=== PATIENT | female | born 1930 | race Hispanic/Latino ===

== ENCOUNTER 2017-04-02 17:23 | Inpatient (IN) | payer MEDICARE ==
[2017-04-02] MEDS ORDERED: LASIX PO ONE (19:47)
[2017-04-02 20:15] LABS: Basophils % (Auto) 0.6 % (0.0-1.8); Eosinophils % (Auto) 1.2 % (0.0-4.3); Hematocrit 37.6 % (30.3-42.9); Hemoglobin 12.3 gm/dl (10.1-14.3); Mean Corpuscular HGB Conc 33 % (30-34); Mean Corpuscular Hemoglobin 28 pg (28-32); Mean Corpuscular Volume 84 fl (79-97); Platelet Count 321 K/mm3 (140-440); Red Blood Count 4.47 M/mm3 (3.65-5.03); Red Cell Distribution Width 15.4 % (13.2-15.2)
[2017-04-02 20:24] LABS: INR 1.18 (0.87-1.13)
[2017-04-02 20:25] LABS: Partial Thromboplastin Time 33.9 Sec. (24.2-36.6)
[2017-04-02 20:30] LABS: Alanine Aminotransferase 24 units/L (7-56); Albumin 2.1 g/dL (3.9-5); Albumin/Globulin Ratio 0.5 %; Alkaline Phosphatase 162 units/L (35-129); Anion Gap 13 mmol/L; BUN/Creatinine Ratio 48.57; Blood Urea Nitrogen 34 mg/dL (7-17); Calcium 8.9 mg/dL (8.4-10.2); Carbon Dioxide 35 mmol/L (22-30); Chloride 97.5 mmol/L (98-107); Glucose 109 mg/dL (65-100); Potassium 4.4 mmol/L (3.6-5.0); Sodium 141 mmol/L (137-145); Total Protein 6.1 g/dL (6.3-8.2)
[2017-04-02] MEDS ORDERED: LASIX IV ONE (21:02)
--- NOTE | 2017-04-02 23:39 | Emergency Department Report ---
HPI - General Chief Complaint: Weakness Time Seen by Provider: 04/02/17 19:20 - HPI HPI: Patient is a 86-year-old white female sent from care home for severe weakness , shortness of breath, leg swelling, chest pain. Symptom has been going on for the past 5 days but worse today. Patient has been compliant with medication. Patient is denying any fever, chills, night sweats. Patient denies any sick contact. No recent travel. Patient has a history of CHF, high blood pressure, among other medical issues. ED Past Medical Hx - Past Medical History Previous Medical History?: Yes Hx Hypertension: Yes Hx Congestive Heart Failure: Yes Hx of Cancer: Yes - Surgical History Hx Coronary Stent: Yes - Family History Family history: hypertension - Social History Smoking Status: Unknown if ever smoked Substance Use Type: None ED Review of Systems ROS: Stated complaint: EDEMA AND LOW BP Other details as noted in HPI Comment: All other systems reviewed and negative Cardiovascular: chest pain, dyspnea on exertion, orthopnea, edema Physical Exam - Physical Exam Vital Signs: Vital Signs 04/02/17 04/02/17 18:49 21:32 Temperature 98.2 F 97.7 F Pulse Rate 101 H 94 H Respiratory 18 Rate Blood Pressure 112/70 Blood Pressure 130/70 [Right] O2 Sat by Pulse 92 Oximetry Physical Exam: General Adult Exam GENERAL APPEARANCE: Well developed, well nourished, alert and cooperative. HEAD: normocephalic. EYES: PERRL, EOMI. Fundi normal, vision is grossly intact. EARS: External auditory canals and tympanic membranes clear, hearing grossly intact. NOSE: No nasal discharge. THROAT: Oral cavity and pharynx normal. No inflammation, swelling, exudate, or lesions. NECK: Neck supple, non-tender without lymphadenopathy, masses or thyromegaly. CARDIAC: Normal S1 and S2. . Rhythm is regular. LUNGS: diminished breath sounds. ABDOMEN: Positive bowel sounds. Soft, nondistended, nontender. No guarding or rebound. No masses. EXTREMITIES: Significant lower extremity edema NEUROLOGICAL: CN II-XII intact. Strength and sensation symmetric and intact throughout. Reflexes 2+ throughout. Cerebellar testing normal. SKIN: Skin normal color, texture and turgor with no lesions or eruptions. PSYCHIATRIC: The mental examination revealed the patient was oriented to person , place, and time. The patient was able to demonstrate good judgement and reason , without hallucinations, abnormal affect or abnormal behaviors during the examination. Patient is not suicidal. ED Course Vital Signs 04/02/17 04/02/17 18:49 21:32 Temperature 98.2 F 97.7 F Pulse Rate 101 H 94 H Respiratory 18 Rate Blood Pressure 112/70 Blood Pressure 130/70 [Right] O2 Sat by Pulse 92 Oximetry ED Medical Decision Making - Lab Data Result diagrams: 04/02/17 19:48 04/02/17 19:48 Critical care attestation.: If time is entered above; I have spent that time in minutes in the direct care of this critically ill patient, excluding procedure time. ED Disposition Clinical Impression: CHF exacerbation Disposition: OP ADMIT IP TO THIS HOSP Is pt being admited?: Yes Does the pt Need Aspirin: Yes Condition: Stable Referrals: PRIMARY CARE, [Primary Care Provider] - 3-5 Days
[2017-04-03] MEDS ORDERED: NITROSTAT SL PRN (00:54)
[2017-04-03] MEDS ORDERED: MORPHINE IV PRN (00:54)
--- NOTE | 2017-04-03 08:08 | History and Physical Report ---
CHIEF COMPLAINT: Shortness of breath. Other complaints include swelling in the leg. HISTORY OF PRESENT ILLNESS: The patient is an 86-year-old female brought from [facility] [facility] because of shortness of breath with swelling in the legs. The patient denied chest pain. Denied history of fever. Denies history of cough and said that his shortness of breath is getting worse. PAST MEDICAL HISTORY: Pertinent for hypertension, congestive heart failure, history of unknown cancer. The patient also has past history of coronary artery disease. PAST SURGICAL HISTORY: Pertinent for stent placement. FAMILY HISTORY: Pertinent for hypertension. SOCIAL HISTORY: The patient stays at the [place] [facility], does not smoke, does not drink alcohol and does not use illicit drugs. MEDICATIONS: The patient's home medications are not known at this time. ALLERGIES: THE PATIENT IS ALLERGIC TO PENICILLIN. REVIEW OF SYSTEMS: CONSTITUTIONAL: There is no fever, no chills, no diaphoresis. HEENT: There is no headache or sore throat. CARDIOVASCULAR: There is no chest pain, no orthopnea. RESPIRATORY: Shortness of breath present. No cough. GASTROINTESTINAL: Show no nausea, no vomiting, no abdominal pain, diarrhea or constipation. NEUROLOGICAL: There is no numbness, no dizziness, no altered mental status. MUSCULOSKELETAL: Swelling in both lower extremities notably in the ankles reported. DERMATOLOGICAL: There is no skin rash or itching. GENITOURINARY: There is no dysuria, hematuria, or flank pain. Rest of system review is normal. PHYSICAL EXAMINATION: GENERAL: At the time of exam, the patient was found to be alert and oriented x 3 and in mild distress due to shortness of breath. VITAL SIGNS: Shows temperature of 98.7 degrees Fahrenheit, pulse of 105, respirations of 22, blood pressure of 130/70, O2 sat of 96% on oxygen. HEENT: Showed pupils to be equal, round, reactive to light and accommodation. Extraocular muscles are intact. NECK: Supple with no JVD or carotid bruit. CARDIOVASCULAR: Showed normal first and second heart sounds with no gallops or murmur. RESPIRATORY: Showed bibasilar rales. GASTROINTESTINAL: Show abdomen to be full, soft, nontender with no organomegaly or rigidity. NEUROLOGIC: Shows no focal deficits. MUSCULOSKELETAL: Shows swelling of both the ankles and legs with pitting edema. DERMATOLOGICAL: Show no skin rash. GENITOURINARY: Showing no costovertebral angle tenderness. PERTINENT LABORATORY AND IMAGING STUDIES: The patient had CBC done with normal white count, normal hemoglobin and normal hematocrit. CBC differential showed elevated neutrophil count of 72.5% with no significant band. Coagulation study was unremarkable. Chemistry shows elevated CO2 with a value of 35 and elevated BUN with a value of 34 with normal creatinine and unremarkable EGFR. Troponin level was high with a value of 0.052. Brain natriuretic peptide value was high with a value of 3228, albumin level was low with a value of 2.1. The patient had chest x-ray done that shows mild pulmonary congestion. DIAGNOSIS: Congestive heart failure with exacerbation. PLAN: The patient will be admitted to medical floor using CHF pathway and will have cardiac enzymes involving troponin, total CK, and CK-MB checked q. 6 hours x 2 more levels. The patient will be on IV Lasix 40 mg daily and will have complete echocardiogram done this morning. DVT prophylaxis will be through sequential compressive device. The patient will be on aspirin 325 mg by mouth daily and will be on Lasix 40 mg IV daily and IV morphine 2 mg every 3 hours as needed for pain. The patient will be on Nitrostat 0.4 mg every 5 minutes as needed for chest pain and will be on oxygen by nasal cannula 2 liters per minute. JOB# [id number] OCN/NTS
--- NOTE | 2017-04-03 09:13 | XRay Report ---
AP chest x-ray. History: Shortness of breath. Findings: The heart is mildly enlarged with prominent central pulmonary vessels. Hazy opacity in the left lower lung zone with blunting of the costophrenic angle indicates a small effusion and/or left lower lobe atelectasis. A small right effusion is suspected as well. Impression: Mild CHF.
--- NOTE | 2017-04-03 09:29 | Admit Criteria Form ---
Admission Criteria Documentation: HEART FAILURE: COMMON COMPLICATIONS Clinical Indications for Inpatient Care ([facility]/check or initial the applicable condition/criteria): Ongoing inpatient care may be indicated for heart failure with 1 or more of the following (1)(2)(3)(4)(5)(6)(7)(8): [ ]I. New-onset heart failure [ ]II. Acute cardiac ischemia causing or associated with failure [ ]III. Ongoing need for care for primary condition requiring frequent therapy adjustments because of changes in cardiac function (eg, drug dosage changes for drugs that are renally metabolized) [X]IV. Complications of heart failure, including 1 or more of the following: [ ]a) Hemodynamic instability [ ]b) Pericardial effusion [ ]c) Symptomatic pleural effusion(16) [ ]d) Hypoxemia [ ]e) Tachypnea [X ]f) Dyspnea [ ]g) Syncope [ ]h) Altered mental status [ ]i) Acute renal insufficiency that is severe (reduction of more than 50% in estimated glomerular filtration rate from baseline) or progressive (reduction of more than 25% in estimated glomerular filtration rate from baseline, with creatinine continuing to rise) [ ]j) Debilitating anasarca (eg tissue breakdown with infection, inability to void due to edema)(E) (17) [ ]k) Clinically significant metabolic abnormalities due to heart failure (e.g., new-onset metabolic acidosis) Extended stay may be needed until ALL of the following are present(1)(3)(18)(41) (55): [ ]a) Hemodynamic stability [ ]b) Stable and effective diuretic regimen established (or patient on stable dialysis regimen if in chronic renal failure) [ ]c) Volume status acceptable on oral medication [ ]d) Breathing comfortably at rest [ ]e) Saturation of arterial oxygen greater than 90% or at acceptable baseline [ ]f) Pulmonary edema absent or improved [ ]g) Peripheral or sacral edema absent or improved [ ]h) Renal function stable and manageable at a lower level of care [ ]i) Complications (e.g., pleural effusion) resolved or manageable at a lower level of care [ ]j) Patient or caregiver has received written discharge instructions or educational material addressing activity level, diet, discharge medications, follow-up appointment, weight monitoring, and what to do if symptoms worsen. (56)(57)(58) The original [facility] [employer] content created by Deonte Vidales has been revised. The portions of the content which have been revised are identified through the use of italic text or in bold, and Deonte Vidales has neither reviewed nor approved the modified material.All other unmodified content is copyright [facility] [employer]. Please see references footnoted in the original [facility] [employer] edition 2017 Admission Criteria Met: Yes
[2017-04-03] MEDS ORDERED: ASPIRIN PO SCH (10:00)
[2017-04-03] MEDS: HEPARIN SUB-Q SCH ×2 (10:26→21:16)
[2017-04-03] MEDS: LASIX IV SCH (10:26)
[2017-04-03] MEDS: ASPIRIN PO SCH (10:27)
--- NOTE | 2017-04-03 16:50 | Progress Note ---
Assessment and Plan Assessment and plan: Acute diastolic CHF - Patient is being managed according to CHF protocol -Echo showed diastolic dysfunction with preserved ejection fraction Malnutrition Nutrition consult DVT prophylaxis Heparin Disposition Possible discharge tomorrow History Interval history: Patient was seen and evaluated this morning, She doesn't have any complaints, and was referred from [facility]. Hospitalist Physical - Physical exam Narrative exam: Not in cardiopulmonary distress. The patient appeared well nourished and normally developed. Vital signs as documented. Head exam is unremarkable. No scleral icterus . Neck is without jugular venous distension, thyromegaly, or carotid bruits. Lungs are clear to auscultation. Cardiac exam reveals regular rate and Rhythm. First and second heart sounds normal. No murmurs, rubs or gallops. Abdominal exam reveals normal bowel sounds, no masses, no organomegaly and no aortic enlargement. Extremities bilateral lower extremity swelling, nonpitting edema. CHANGE MANAGEMENT ANALYST: Alert and oriented 3. No focal weakness. - Constitutional Vitals: Temp Pulse Resp BP Pulse Ox 98.4 F 64 18 89/53 93 04/03/17 08:51 04/03/17 08:51 04/03/17 08:51 04/03/17 08:51 04/03/17 12:47 Results - Labs CBC & Chem 7: 04/02/17 19:48 04/02/17 19:48 Labs: Laboratory Last Values WBC 11.0 K/mm3 (4.5-11.0) 04/02/17 19:48 RBC 4.47 M/mm3 (3.65-5.03) 04/02/17 19:48 Hgb 12.3 gm/dl (10.1-14.3) 04/02/17 19:48 Hct 37.6 % (30.3-42.9) 04/02/17 19:48 MCV 84 fl (79-97) 04/02/17 19:48 MCH 28 pg (28-32) 04/02/17 19:48 MCHC 33 % (30-34) 04/02/17 19:48 RDW 15.4 % (13.2-15.2) H 04/02/17 19:48 Plt Count 321 K/mm3 (140-440) 04/02/17 19:48 Lymph % (Auto) 15.6 % (13.4-35.0) 04/02/17 19:48 [place] % (Auto) 10.1 % (0.0-7.3) H 04/02/17 19:48 Eos % (Auto) 1.2 % (0.0-4.3) 04/02/17 19:48 Baso % (Auto) 0.6 % (0.0-1.8) 04/02/17 19:48 Lymph # 1.7 K/mm3 (1.2-5.4) 04/02/17 19:48 [place] # 1.1 K/mm3 (0.0-0.8) H 04/02/17 19:48 Eos # 0.1 K/mm3 (0.0-0.4) 04/02/17 19:48 Baso # 0.1 K/mm3 (0.0-0.1) 04/02/17 19:48 Seg Neutrophils % 72.5 % (40.0-70.0) H 04/02/17 19:48 Seg Neutrophils # 8.0 K/mm3 (1.8-7.7) H 04/02/17 19:48 PT 14.9 Sec. (12.2-14.9) 04/02/17 19:48 INR 1.18 (0.87-1.13) H 04/02/17 19:48 APTT 33.9 Sec. (24.2-36.6) 04/02/17 19:48 Sodium 141 mmol/L (137-145) 04/02/17 19:48 Potassium 4.4 mmol/L (3.6-5.0) 04/02/17 19:48 Chloride 97.5 mmol/L (98-107) L 04/02/17 19:48 Carbon Dioxide 35 mmol/L (22-30) H 04/02/17 19:48 Anion Gap 13 mmol/L 04/02/17 19:48 BUN 34 mg/dL (7-17) H 04/02/17 19:48 Creatinine 0.7 mg/dL (0.7-1.2) 04/02/17 19:48 Estimated GFR > 60 ml/min 04/02/17 19:48 BUN/Creatinine Ratio 48.57 % 04/02/17 19:48 Glucose 109 mg/dL (65-100) H 04/02/17 19:48 Calcium 8.9 mg/dL (8.4-10.2) 04/02/17 19:48 Total Bilirubin 0.80 mg/dL (0.1-1.2) 04/02/17 19:48 AST 29 units/L (5-40) 04/02/17 19:48 ALT 24 units/L (7-56) 04/02/17 19:48 Alkaline Phosphatase 162 units/L (35-129) H 04/02/17 19:48 Troponin T 0.052 ng/mL (0.00-0.029) H 04/02/17 19:48 NT-Pro-B Natriuret Pep 3228 pg/mL (0-900) H 04/02/17 21:06 Total Protein 6.1 g/dL (6.3-8.2) L 04/02/17 19:48 Albumin 2.1 g/dL (3.9-5) L 04/02/17 19:48 Albumin/Globulin Ratio 0.5 % 04/02/17 19:48 Triglycerides 49 mg/dL (2-149) 04/02/17 19:48 Cholesterol 78 mg/dL (50-199) 04/02/17 19:48 LDL Cholesterol Direct 24 mg/dL (50-130) L 04/02/17 19:48 HDL Cholesterol 45 mg/dL (40-59) 04/02/17 19:48 Cholesterol/HDL Ratio 1.73 % 04/02/17 19:48 - Imaging and Cardiology Imaging and Cardiology: Echo was done and significant for diastolic dysfunction
[2017-04-04 06:07] LABS: Basophils % (Auto) 0.9 % (0.0-1.8); Eosinophils % (Auto) 3.1 % (0.0-4.3); Hemoglobin 11.9 gm/dl (10.1-14.3); Mean Corpuscular HGB Conc 32 % (30-34); Mean Corpuscular Hemoglobin 27 pg (28-32); Mean Corpuscular Volume 84 fl (79-97); Platelet Count 293 K/mm3 (140-440); Red Blood Count 4.42 M/mm3 (3.65-5.03); White Blood Count 8.3 K/mm3 (4.5-11.0)
[2017-04-04 06:20] LABS: Anion Gap 13 mmol/L; Blood Urea Nitrogen 32 mg/dL (7-17); Calcium 8.8 mg/dL (8.4-10.2); Carbon Dioxide 35 mmol/L (22-30); Chloride 94.3 mmol/L (98-107); Glucose 84 mg/dL (65-100); Potassium 3.9 mmol/L (3.6-5.0); Sodium 138 mmol/L (137-145)
[2017-04-04] MEDS: ASPIRIN PO SCH (09:21)
[2017-04-04] MEDS: LASIX IV SCH (09:21)
[2017-04-04] MEDS ORDERED: ROXICODONE PO PRN (10:19)
[2017-04-04] MEDS: HEPARIN SUB-Q SCH ×2 (11:06→21:07)
--- NOTE | 2017-04-04 13:02 | Consultation ---
<BINTA GARCIA - Last Filed: 04/04/17 13:22> History of Present Illness Consult date: 04/04/17 Consult reason: congestive heart failure, elevated troponin History of present illness: This is an 86yr old woman who was sent from the [facility] with shortness of breath and lower extremity edema. Patient is a poor historian. Patient denies chest pain. Her EKG shows atrial fibrillation with a well controlled ventricular rate. Home medications unavailable at this time. Chest x-ray reports mild CHF. Cardiac consultation was requested. Medications and Allergies Allergies Allergy/AdvReac Type Severity Reaction Status Date / Time Penicillins Allergy Unknown Rash Verified 04/02/17 20:59 Home Medications Medication Instructions Recorded Confirmed Last Taken Type No Known Home Medications [No 04/04/17 04/04/17 Unknown History Reported Home Medications] Active Meds: Active Medications Aspirin (Aspirin) 325 mg PO QDAY [facility] Last Admin: 04/04/17 09:21 Dose: 325 mg Furosemide (Lasix) 40 mg IV QDAY [facility] Last Admin: 04/04/17 09:21 Dose: 40 mg Heparin Sodium (Porcine) (Heparin) 5,000 unit SUB-Q Q12HR [facility] Last Admin: 04/04/17 11:06 Dose: 5,000 unit Morphine Sulfate (Morphine) 2 mg IV Q3H PRN PRN Reason: Chest Pain Nitroglycerin (Nitrostat) 0.4 mg SL .Q5MIN PRN PRN Reason: Chest Pain Oxycodone HCl (Roxicodone) 10 mg PO Q6H PRN PRN Reason: Pain, Moderate (4-6) Last Admin: 04/04/17 11:05 Dose: 10 mg Physical Examination Vital Signs Temp Pulse BP 98.2 F 101 H 112/70 04/02/17 18:49 04/02/17 18:49 04/02/17 18:49 General appearance: no acute distress HEENT: Positive: PERRL Cardiac: Positive: irregularly irregular Lungs: Positive: Decreased Breath Sounds Results 04/04/17 04:58 04/04/17 04:58 CBC 04/04/17 Range/Units 04:58 WBC 8.3 (4.5-11.0) K/mm3 RBC 4.42 (3.65-5.03) M/mm3 Hgb 11.9 (10.1-14.3) gm/dl Hct 37.0 (30.3-42.9) % Plt Count 293 (140-440) K/mm3 Lymph # 1.9 (1.2-5.4) K/mm3 [place] # 0.9 H (0.0-0.8) K/mm3 Eos # 0.3 (0.0-0.4) K/mm3 Baso # 0.1 (0.0-0.1) K/mm3 Comprehensive Metabolic Panel 04/04/17 Range/Units 04:58 Sodium 138 (137-145) mmol/L Potassium 3.9 (3.6-5.0) mmol/L Chloride 94.3 L (98-107) mmol/L Carbon Dioxide 35 H (22-30) mmol/L BUN 32 H (7-17) mg/dL Creatinine 0.8 (0.7-1.2) mg/dL Glucose 84 (65-100) mg/dL Calcium 8.8 (8.4-10.2) mg/dL Assessment and Plan CHF, diastolic EF 50-55% on echocardiogram Afib, uncertain duration rate controlled Nonspecific elevated troponin Recommendations: Obtain prior cardiac records and home medications. Agree with IV diuresis. <CHALINO GORMAN Last Filed: 04/04/17 23:26> History of Present Illness Consult reason: aortic stenosis Medications and Allergies Active Meds: Active Medications Aspirin (Aspirin) 325 mg PO QDAY [facility] Last Admin: 04/04/17 09:21 Dose: 325 mg Furosemide (Lasix) 40 mg IV QDAY [facility] Last Admin: 04/04/17 09:21 Dose: 40 mg Heparin Sodium (Porcine) (Heparin) 5,000 unit SUB-Q Q12HR [facility] Last Admin: 04/04/17 21:07 Dose: 5,000 unit Morphine Sulfate (Morphine) 2 mg IV Q3H PRN PRN Reason: Chest Pain Nitroglycerin (Nitrostat) 0.4 mg SL .Q5MIN PRN PRN Reason: Chest Pain Oxycodone HCl (Roxicodone) 10 mg PO Q6H PRN PRN Reason: Pain, Moderate (4-6) Last Admin: 04/04/17 11:05 Dose: 10 mg Physical Examination Vital Signs Temp Pulse BP 98.2 F 101 H 112/70 04/02/17 18:49 04/02/17 18:49 04/02/17 18:49 Results 04/04/17 04:58 04/04/17 04:58 CBC 04/04/17 Range/Units 04:58 WBC 8.3 (4.5-11.0) K/mm3 RBC 4.42 (3.65-5.03) M/mm3 Hgb 11.9 (10.1-14.3) gm/dl Hct 37.0 (30.3-42.9) % Plt Count 293 (140-440) K/mm3 Lymph # 1.9 (1.2-5.4) K/mm3 [place] # 0.9 H (0.0-0.8) K/mm3 Eos # 0.3 (0.0-0.4) K/mm3 Baso # 0.1 (0.0-0.1) K/mm3 Comprehensive Metabolic Panel 04/04/17 Range/Units 04:58 Sodium 138 (137-145) mmol/L Potassium 3.9 (3.6-5.0) mmol/L Chloride 94.3 L (98-107) mmol/L Carbon Dioxide 35 H (22-30) mmol/L BUN 32 H (7-17) mg/dL Creatinine 0.8 (0.7-1.2) mg/dL Glucose 84 (65-100) mg/dL Calcium 8.8 (8.4-10.2) mg/dL Assessment and Plan POSSIBLE DEMENTIA PAH
--- NOTE | 2017-04-04 16:48 | Progress Note ---
Assessment and Plan Assessment and plan: Acute diastolic CHF - Patient is being managed according to CHF protocol - Echo showed diastolic dysfunction with preserved ejection fraction Elevated troponin level - Cardiology consult appreciated - We'll get previous records and medication Malnutrition -nutrition consult DVT prophylaxis Heparin Disposition - Continue patient care. History Interval history: Patient was seen and evaluated this morning, patient is complaining right knee pain, no swelling or tenderness on examination. Patient denied any chest pain. Hospitalist Physical - Physical exam Narrative exam: Not in cardiopulmonary distress. The patient appeared well nourished and normally developed. Vital signs as documented. Head exam is unremarkable. No scleral icterus . Neck is without jugular venous distension, thyromegaly, or carotid bruits. Lungs are clear to auscultation. Cardiac exam reveals regular rate and Rhythm. First and second heart sounds normal. No murmurs, rubs or gallops. Abdominal exam reveals normal bowel sounds, no masses, no organomegaly and no aortic enlargement. Extremities bilateral lower extremity swelling, nonpitting edema. MANAGER MAIL: Alert and oriented 3. No focal weakness. - Constitutional Vitals: Temp Pulse Resp BP Pulse Ox 98.7 F 90 18 89/54 97 04/04/17 12:31 04/04/17 12:31 04/04/17 12:31 04/04/17 12:31 04/04/17 12:31 General appearance: Present: no acute distress Results - Labs CBC & Chem 7: 04/04/17 04:58 04/04/17 04:58 Labs: Laboratory Last Values WBC 8.3 K/mm3 (4.5-11.0) 04/04/17 04:58 RBC 4.42 M/mm3 (3.65-5.03) 04/04/17 04:58 Hgb 11.9 gm/dl (10.1-14.3) 04/04/17 04:58 Hct 37.0 % (30.3-42.9) 04/04/17 04:58 MCV 84 fl (79-97) 04/04/17 04:58 MCH 27 pg (28-32) L 04/04/17 04:58 MCHC 32 % (30-34) 04/04/17 04:58 RDW 16.0 % (13.2-15.2) H 04/04/17 04:58 Plt Count 293 K/mm3 (140-440) 04/04/17 04:58 Lymph % (Auto) 23.0 % (13.4-35.0) 04/04/17 04:58 [place] % (Auto) 11.0 % (0.0-7.3) H 04/04/17 04:58 Eos % (Auto) 3.1 % (0.0-4.3) 04/04/17 04:58 Baso % (Auto) 0.9 % (0.0-1.8) 04/04/17 04:58 Lymph # 1.9 K/mm3 (1.2-5.4) 04/04/17 04:58 [place] # 0.9 K/mm3 (0.0-0.8) H 04/04/17 04:58 Eos # 0.3 K/mm3 (0.0-0.4) 04/04/17 04:58 Baso # 0.1 K/mm3 (0.0-0.1) 04/04/17 04:58 Seg Neutrophils % 62.0 % (40.0-70.0) 04/04/17 04:58 Seg Neutrophils # 5.1 K/mm3 (1.8-7.7) 04/04/17 04:58 PT 14.9 Sec. (12.2-14.9) 04/02/17 19:48 INR 1.18 (0.87-1.13) H 04/02/17 19:48 APTT 33.9 Sec. (24.2-36.6) 04/02/17 19:48 Sodium 138 mmol/L (137-145) 04/04/17 04:58 Potassium 3.9 mmol/L (3.6-5.0) 04/04/17 04:58 Chloride 94.3 mmol/L (98-107) L 04/04/17 04:58 Carbon Dioxide 35 mmol/L (22-30) H 04/04/17 04:58 Anion Gap 13 mmol/L 04/04/17 04:58 BUN 32 mg/dL (7-17) H 04/04/17 04:58 Creatinine 0.8 mg/dL (0.7-1.2) 04/04/17 04:58 Estimated GFR > 60 ml/min 04/04/17 04:58 BUN/Creatinine Ratio 40.00 % 04/04/17 04:58 Glucose 84 mg/dL (65-100) 04/04/17 04:58 Calcium 8.8 mg/dL (8.4-10.2) 04/04/17 04:58 Total Bilirubin 0.80 mg/dL (0.1-1.2) 04/02/17 19:48 AST 29 units/L (5-40) 04/02/17 19:48 ALT 24 units/L (7-56) 04/02/17 19:48 Alkaline Phosphatase 162 units/L (35-129) H 04/02/17 19:48 Troponin T 0.056 ng/mL (0.00-0.029) H 04/03/17 21:27 NT-Pro-B Natriuret Pep 3228 pg/mL (0-900) H 04/02/17 21:06 Total Protein 6.1 g/dL (6.3-8.2) L 04/02/17 19:48 Albumin 2.1 g/dL (3.9-5) L 04/02/17 19:48 Albumin/Globulin Ratio 0.5 % 04/02/17 19:48 Triglycerides 49 mg/dL (2-149) 04/02/17 19:48 Cholesterol 78 mg/dL (50-199) 04/02/17 19:48 LDL Cholesterol Direct 24 mg/dL (50-130) L 04/02/17 19:48 HDL Cholesterol 45 mg/dL (40-59) 04/02/17 19:48 Cholesterol/HDL Ratio 1.73 % 04/02/17 19:48
[2017-04-05 07:13] LABS: Blood Urea Nitrogen 30 mg/dL (7-17); Calcium 8.8 mg/dL (8.4-10.2); Carbon Dioxide 35 mmol/L (22-30); Chloride 91.9 mmol/L (98-107); Glucose 149 mg/dL (65-100); Sodium 139 mmol/L (137-145)
[2017-04-05 07:58] LABS: Anion Gap 17 mmol/L; Potassium 4.9 mmol/L (3.6-5.0)
[2017-04-05] MEDS: LASIX IV SCH (09:09)
[2017-04-05] MEDS: HEPARIN SUB-Q SCH (09:09)
[2017-04-05] MEDS: ASPIRIN PO SCH (09:09)
--- NOTE | 2017-04-05 09:35 | Query- Nutrition ---
Bandar Escalante___Spike Date:___04/05/17 Court Commissioner/CDS:___Blane Adameshadeterry Phone#:____[phone] Exercise your independent professional judgment when responding to query. Questions asked do not imply a particular answer is desired or expected. We greatly appreciate your clarification on this issue. Clinical Documentation States: 86 year old female was admitted on 04/03/17 The progress note (04/04/17) states " Malnutrition " Clinical Findings Show: Albumin: 2.1 Please select the most appropriate option 3 [] Mild Malnutrition [] Mild - Moderate Malnutrition [] Moderate - Severe Malnutrition [x] Severe Malnutrition Serum Albumin 2.8 to 3.4 g/dl or Pre-albumin 5 to 17 mg/dl1,2 Inadequate nutritional intake1,2,3,4 NPO > 5 days Weight loss: 5% in 1 month or 7.5% in 3 months or 10% in 6 months1, 3,4 BMI 16 to 18.4 or Weight <90% of ideal body weight1,2,3,4 Serum Albumin < 2.8 g/ dl1,2 Lymphocytes < 1500/ L2 Inadequate nutritional intake3, high stress e.g. major trauma, sepsis,pancreatitis, charles etc. Decubitus ulcers1,2, , skin breakdown2, easy hair pluckability2 Weight <80% standard for height2 Triceps skin fold <3 mm2 Mid-arm muscle circumference <15 cm2 Creatinine-height index <60% standard2 [ ] Cachexia [ ] Emaciated w/Malnutrition [ ] Other: [ x] Unable to determine [ ] Comment/Explanation: Present on Admission: [x ] Yes (Y) [ ] Clinically undeterminable (W) [ ] No (N) Please also document response in your Progress Notes and/or Discharge Summary and indicate if the condition was present on admission. MTDD
--- NOTE | 2017-04-05 13:07 | Progress Note ---
Assessment and Plan Chronic LE Lymphedema Cor pulmonale EF 50-55% on echocardiogram Afib, uncertain duration Nonspecific elevated troponin Recommendations: Patient is considered not a candidate for oral anticoagulation. Subjective Date of service: 04/05/17 Interval history: Patient alert with confusion. She denies chest pain and shortness of breath. Objective Vital Signs Temp Pulse Pulse Resp BP Pulse Ox 04/05/17 11:04 94 H 97 H 18 98 04/05/17 08:48 98.4 F 97 H 18 127/64 98 04/05/17 04:00 98.5 F 92 H 18 150/67 97 04/05/17 03:27 95 H 04/05/17 03:11 22 95 04/05/17 00:00 98.2 F 95 H 18 119/61 96 04/04/17 20:31 100 04/04/17 20:13 98.3 F 97 H 18 112/59 98 04/04/17 18:53 20 04/04/17 17:39 98.1 F 97 H 18 117/77 97 - Physical Examination General: No Apparent Distress HEENT: Positive: PERRL Cardiac: Positive: irregularly irregular Lungs: Positive: Decreased Breath Sounds - Labs and Meds Comprehensive Metabolic Panel 04/05/17 Range/Units 05:33 Sodium 139 (137-145) mmol/L Potassium 4.9 D (3.6-5.0) mmol/L Chloride 91.9 L (98-107) mmol/L Carbon Dioxide 35 H (22-30) mmol/L BUN 30 H (7-17) mg/dL Creatinine 0.8 (0.7-1.2) mg/dL Glucose 149 H (65-100) mg/dL Calcium 8.8 (8.4-10.2) mg/dL
[2017-04-05 14:33] VITALS: BP 100/60
--- NOTE | 2017-04-05 15:09 | Discharge Summary ---
Providers - Providers Date of Admission: 04/02/17 23:43 Date of discharge: 04/05/17 Attending physician: MAGO AHMADI MD 04/03/17 10:55 Consult to Dietitian/Nutrition [CONS] Routine Physician Instructions: Reason For Exam: Reason for Consult: amber score 14 04/04/17 10:32 Consult to Physician [CONS] Routine Consulting Provider: ROCHELLE CEDILLO Reason For Exam: CHF, Elevated troponin Place consult to:: Dr. Cedillo Notified:: Fadi MENDOZA Was contact made?: Yes If yes, spoke with:: Sánchez Flanagan Time called:: 11:25 Primary care physician: SUPPLY CHAIN ENGINEER Hospitalization Reason for admission: Acute diastolic CHF Condition: Stable Pertinent studies: Echo ejection fraction 55-60%, diastolic dysfunction Hospital course: 86-year-old female with history of dementia, unknown past medical history was brought via EMS to the emergency department from custodial because of complaints of shortness of breath and bilateral leg swelling. The patient has severe dementia and we couldn't get any history, we couldn't get any home medications. Patient was admitted and managed for CHF and paternal fibrillation. Cardiology was consulted and recommended to continue the diastolic heart failure and recommended againest anticoagulating her because of her recurrent fall and old age. Patient was breathing well, bilateral leg swelling is getting better. Patient was discharged home with appropriate diastolic CHF medications. Patient was hemodynamically stable on the time of discharge. Disposition: [id number] [facility] Time spent for discharge: 31 minutes - Discharge Diagnoses (1) Acute diastolic (congestive) heart failure Status: Acute (2) Atrial fibrillation Status: Acute Qualifiers: Atrial fibrillation type: A (3) Debility Status: Acute Core Measure Documentation - Palliative Care Palliative Care/ Comfort Measures: Not Applicable - Core Measures Any of the following diagnoses?: heart failure - Heart Failure Discharge Requirements VONDA/ARB for LVSD if EF <40%: Not Applicable Beta bruce at discharge: Yes Exam - Physical Exam Narrative exam: Not in cardiopulmonary distress. The patient appeared well nourished and normally developed. Vital signs as documented. Head exam is unremarkable. No scleral icterus . Neck is without jugular venous distension, thyromegaly, or carotid bruits. Lungs are clear to auscultation. Cardiac exam reveals regular rate and Rhythm. First and second heart sounds normal. No murmurs, rubs or gallops. Abdominal exam reveals normal bowel sounds, no masses, no organomegaly and no aortic enlargement. Extremities bilateral lower extremity swelling, nonpitting edema. 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 No focal weakness. - Constitutional Vitals: Temp Pulse Resp BP Pulse Ox 98.6 F 103 H 18 100/60 98 04/05/17 14:32 04/05/17 14:32 04/05/17 14:32 04/05/17 14:32 04/05/17 14:32 Plan Activity: advance as tolerated, fall precautions Weight Bearing Status: Weight Bear as Tolerated Diet: low cholesterol, low salt Follow up with: PRIMARY CARE, [Primary Care Provider] - 3-5 Days Prescriptions: Carvedilol [Coreg] 3.125 mg PO BID #60 tablet Furosemide [Lasix TAB] 40 mg PO QDAY #30 tablet oxyCODONE /ACETAMINOPHEN [Percocet 5/325] 1 tab PO Q6HR PRN #15 tablet PRN Reason: Pain Potassium Chloride 10 meq PO QDAY #30 capsule.er
== END 2017-04-05 16:53 | DRG 291 ==
LOC: ED 17:23 → 4A 23:43
PROVIDERS: ADMIT Internal Medicine; ATTEND Internal Medicine
DX: I11.0 Hypertensive heart disease with heart failure (principal); E43 Unspecified severe protein-calorie malnutrition; I50.31 Acute diastolic (congestive) heart failure; F03.90 Unspecified dementia, unspecified severity, without behavioral disturbance, psychotic disturbance, mood disturbance, and anxiety; I48.91 Unspecified atrial fibrillation; R53.81 Other malaise; I25.10 Atherosclerotic heart disease of native coronary artery without angina pectoris; I89.0 Lymphedema, not elsewhere classified; I27.81 Cor pulmonale (chronic); Z85.9 Personal history of malignant neoplasm, unspecified; Z95.5 Presence of coronary angioplasty implant and graft; Z82.49 Family history of ischemic heart disease and other diseases of the circulatory system; Z88.0 Allergy status to penicillin
CPT/HCPCS: 36415; 71010; 80048; 80053; 80061; 83880; 84484; 85025; 85610; 85730; 93005; 93010; 93306; 94760; 96374; J1644; J1940; J2270